=== PATIENT | female | born 1965 | race Caucasian/White ===

== ENCOUNTER 2021-01-15 05:44 | Inpatient (IN) | payer BC ==
[2021-01-14 13:45] LABS: BASOPHILS % (AUTO) 0.5 % (0-1); EOSINOPHILS # (AUTO) 0.1 X10'3 (0-0.9); LYMPHOCYTES # (AUTO) 1.6 X10'3 (1.1-4.8); LYMPHOCYTES % (AUTO) 21.7 % (21-51); MEAN CORPUSCULAR HEMOGLOBIN 34.5 PG (27.0-31.0); MEAN CORPUSCULAR HGB CONC 35.1 g/dL (33.0-36.5); MEAN CORPUSCULAR VOLUME 98.3 FL (78-98); MEAN PLATELET VOLUME 7.4 FL (7.4-10.4); MONOCYTES # (AUTO) 0.5 X10'3 (0-0.9); MONOCYTES % (AUTO) 7.2 % (2-12); NEUTROPHILS # (AUTO) 5.2 X10'3 (1.8-7.7); NEUTROPHILS % (AUTO) 69.6 % (42-75); PRE OP HEMATOCRIT 35.7 % (35.0-45.0); PRE OP HEMOGLOBIN 12.5 g/dL (12.0-16.0); PRE OP PLATELET COUNT 193 X10'3 (140-440); RED BLOOD COUNT 3.63 X10'6 (4.20-5.60)
[2021-01-14 13:54] LABS: PRE OP PROTIME 10.2 SECONDS (9.0-12.0)
[2021-01-14 14:00] LABS: ALBUMIN 3.5 G/DL (3.4-5.0); ALBUMIN/GLOBULIN RATIO 0.8 (1.1-1.5); ALKALINE PHOSPHATASE 131 IU/L (46-116); BLOOD UREA NITROGEN 12 MG/DL (7-18); BUN/CREATININE RATIO 18.2 (6.6-38.0); CALCIUM 8.8 MG/DL (8.5-10.1); CHLORIDE 107 MMOL/L (99-107); CREATININE 0.66 MG/DL (0.40-0.90); PRE OP ALT 25 U/L (30-65); PRE OP ANION GAP 11 (8-16); PRE OP AST 20 U/L (10-37); PRE OP BILIRUB, TOTAL 0.3 MG/DL (0.0-1.0); PRE OP GLUCOSE 85 MG/DL (70-104); PRE OP POTASSIUM 4.1 MMOL/L (3.4-5.1); PRE OP SODIUM 142 MMOL/L (135-145); TOTAL CARBON DIOXIDE 24.5 MMOL/L (24-32); eGFR > 90 ML/MIN
[~2021-01-15] VITALS: Ht 167.6 cm; Wt 67.7 kg
[2021-01-15] VITALS (22 sets, daily range): BP systolic 98–139; BP diastolic 48–78
[~2021-01-15 05:44] MED LIST: CLON-527 PO; FAMO-128 PO; SERT50TA PO; albuterol 2.5 MG/3 ML nebule NEB PRN; cefazolin/dext.iso 2gm/100ml IV ONE; famotidine 20mg tablet PO ONE
[2021-01-15] MEDS ORDERED: ROPIVAcaine 0.5% (5mg/ml) 30ml vial ONE (07:17)
[2021-01-15] MEDS ORDERED: LIDOcaine 1% (10mg/ml) 2ml vial ONE (07:17)
[2021-01-15] MEDS: ringers solution, lacted 1,000 ML IV SCH ×2 (07:24→17:39)
[2021-01-15] MEDS ORDERED: dexamethasone sod phosphate 10mg/ml inj ONE (07:55)
[2021-01-15] MEDS ORDERED: rocuronium 10mg/ml inj IV ONE ×2 (07:55→08:39)
[2021-01-15] MEDS ORDERED: sevoflurane 250ml liquid IH ONE (07:55)
[2021-01-15] MEDS ORDERED: midazolam 1 mg/ML 2ml injection ONE (08:06)
[2021-01-15] MEDS ORDERED: fentaNYL /PF 50mcg/ml 5ml ampule ONE (08:06)
[2021-01-15] MEDS ORDERED: MIDAZolam 1 MG/ML 5ML VIAL ONE (08:13)
[2021-01-15] MEDS ORDERED: LIDOcaine 2% (20mg/ml) 5ml vial ONE (08:39)
[2021-01-15] MEDS ORDERED: propofol inj 20 ML IV ONE (08:39)
[2021-01-15] MEDS ORDERED: BUPIVAcaine/PF 2.5mg/ml (0.25%) 10ml vial ONE (09:08)
[2021-01-15] MEDS ORDERED: ePHEDrine 50MG/ML INJ. ONE (09:34)
[2021-01-15] MEDS ORDERED: albumin (Human) 5% 250ml 250 ML IV ONE ×2 (10:05)
[2021-01-15] MEDS ORDERED: ondansetron/PF 4mg/2ml inj ONE (10:16)
[2021-01-15] MEDS ORDERED: proCHLORperazine 10 MG/2 ml inj IV PRN (10:45)
[2021-01-15] MEDS ORDERED: ringers solution, lacted 1,000 ML IV SCH (10:45)
[2021-01-15] MEDS ORDERED: meperidine/PF 25mg/ml syringe IV PRN ×3 (10:45)
[2021-01-15] MEDS ORDERED: ondansetron/PF 4mg/2ml inj IV PRN ×2 (10:45→12:05)
[2021-01-15] MEDS ORDERED: NALOXONE IV PRN (11:15)
[2021-01-15] MEDS ORDERED: NORMAL SALINE IV PRN (11:15)
[2021-01-15] MEDS ORDERED: fentaNYL/PF 50MCG/1 ML 2ML syringe ONE (11:24)
[2021-01-15] MEDS ORDERED: glycopyrrolate 0.2mg/ml inj ONE (11:55)
[2021-01-15] MEDS ORDERED: neostigmine methylsulfate 1 MG/ML 10ml vial ONE (11:55)
--- NOTE | 2021-01-15 11:57 | NUR ---
Received from OR via , accompanied by Anesthesiologist DR CLEANING and report given by Anesthesiolgist. PT PRESENTS WITH ART LINE 20G LEFT WRIST, CENTRAL LINE QUAD LUMEN RIGHT. CHEST TUBE WITH 220 MLS OUT PUT. VSS. PT CO PAIN . Addendum: 01/15/21 at 1224 by Sharon Doshi RN, RN Amended: Links added.
[2021-01-15] MEDS ORDERED: [UNRECOGNIZED DRUG - OTHER] EPI SCH ×4 (12:00→19:53)
[2021-01-15] MEDS ORDERED: FENTANYL EPI SCH ×4 (12:00→19:53)
[2021-01-15] MEDS ORDERED: BUPIVACAINE EPI SCH ×4 (12:00→19:53)
[2021-01-15] MEDS ORDERED: metoclopramide 5 mg/ml inj IV PRN (12:05)
[2021-01-15] MEDS ORDERED: albuterol 2.5 MG/3 ML nebule NEB PRN (12:05)
[2021-01-15 12:38] LABS: ABG BASE EXCESS -3.6 mmol/L (-2.0-2.0); ABG HCO3 22.5 mmol/L (22.0-26.0); ABG OXYGEN SATURATION 98.7 % (94-97); ABG PCO2 (T) 47.5 mmHg (32.0-45.0); ABG PO2 (T) 176.4 mmHg (75.0-100.0); FLOW 10 L/min; FMetHb 0.3 % (0.0-1.5); FO2Hb 97.4 % (94-97)
[2021-01-15 12:48] LABS: ALBUMIN 3.1 G/DL (3.4-5.0); ANION GAP 11 (8-16); BLOOD UREA NITROGEN 13 MG/DL (7-18); BUN/CREATININE RATIO 20.3 (6.6-38.0); CALCIUM 7.7 MG/DL (8.5-10.1); CHLORIDE 107 MMOL/L (99-107); CREATININE 0.64 MG/DL (0.40-0.90); GLUCOSE 173 MG/DL (70-104); POTASSIUM 4.1 MMOL/L (3.5-5.1); SODIUM 141 MMOL/L (135-145); eGFR > 90 ML/MIN
[2021-01-15] MEDS: clonazePAM 1mg tablet PO SCH ×2 (13:00→22:03)
--- NOTE | 2021-01-15 13:17 | NUR ---
Report called to receiving nurse. Transferred via HOSPITAL BED. 1 BAG Belongings, DENTURES, GLASSES, UNDERWEAR AND MASK TO ROOM 2039. REPORT GIVEN TO ARSH PEARL. VSS. . Addendum: 01/15/21 at 1323 by Sharon Doshi RN, RN Amended: Links added.
--- NOTE | 2021-01-15 13:45 | NUR ---
Received patient from PACU. Report received from Sharon PEARL. Vitals stable. CT draining serosanguinous fluid. Intermittent air leak present. Dressing to right chest and back dry and intact.
[2021-01-15] MEDS: ceFAZolin inj. 1,000 MG in dextrose 5%-water 50ml 50 ML IV SCH ×2 (15:40→23:05)
[2021-01-15] MEDS: albuterol 2.5 MG/3 ML nebule NEB SCH ×3 (16:01→23:03)
--- NOTE | 2021-01-15 18:10 | NUR ---
Problems reprioritized. Patient report given, questions answered & plan of care reviewed with Jennifer PEARL.
--- NOTE | 2021-01-15 18:12 | NUR ---
Problems reprioritized. Patient report given, questions answered & plan of care reviewed with Ortega PEARL.
[2021-01-15] MEDS: gabapentin 300mg capsule PO SCH (19:56)
[2021-01-15] MEDS: famotidine 20mg tablet PO SCH (19:56)
[2021-01-15] MEDS: docusate sod 100mg capsule PO SCH (19:57)
[2021-01-16] VITALS (24 sets, daily range): BP systolic 88–111; BP diastolic 49–69
[2021-01-16] MEDS ORDERED: [UNRECOGNIZED DRUG - OTHER] EPI SCH (01:35)
[2021-01-16] MEDS ORDERED: BUPIVACAINE EPI SCH (01:35)
[2021-01-16] MEDS ORDERED: FENTANYL EPI SCH (01:35)
[2021-01-16] MEDS: FENTANYL-0.9 % NACL/PF 100 ML EPI SCH ×2 (03:24→21:09)
[2021-01-16] MEDS: albuterol 2.5 MG/3 ML nebule NEB SCH ×6 (04:03→23:54)
--- NOTE | 2021-01-16 05:10 | NUR ---
Patient prefer a day bath at this time
[2021-01-16 06:50] LABS: BASOPHILS % (AUTO) 0.1 % (0-1); EOSINOPHILS % (AUTO) 0 % (0-6); HEMATOCRIT 27.6 % (35.0-45.0); HEMOGLOBIN 9.6 g/dl (12.0-16.0); MEAN CORPUSCULAR HEMOGLOBIN 34.5 PG (27.0-31.0); MEAN CORPUSCULAR HGB CONC 34.9 g/dL (33.0-36.5); MEAN CORPUSCULAR VOLUME 98.9 FL (78-98); MEAN PLATELET VOLUME 7.8 FL (7.4-10.4); MONOCYTES # (AUTO) 0.9 X10'3 (0-0.9); MONOCYTES % (AUTO) 7.7 % (2-12); NEUTROPHILS # (AUTO) 10.1 X10'3 (1.8-7.7); NEUTROPHILS % (AUTO) 84.2 % (42-75); PLATELET COUNT 157 X10'3 (140-440); RED BLOOD COUNT 2.79 X10'6 (4.20-5.60); RED CELL DISTRIBUTION WIDTH 16.5 % (11.5-14.5)
[2021-01-16 07:01] LABS: ALANINE AMINOTRANSFERASE 23 U/L (12-78); ALBUMIN/GLOBULIN RATIO 0.9 (1.1-1.5); ALKALINE PHOSPHATASE 81 IU/L (46-116); ANION GAP 11 (8-16); ASPARTATE AMINO TRANSFERASE 29 U/L (10-37); BILIRUBIN,TOTAL 0.5 MG/DL (0.1-1.0); BLOOD UREA NITROGEN 12 MG/DL (7-18); BUN/CREATININE RATIO 19.4 (6.6-38.0); CHLORIDE 104 MMOL/L (99-107); CREATININE 0.62 MG/DL (0.40-0.90); GLUCOSE 122 MG/DL (70-104); MAGNESIUM 1.7 MG/DL (1.5-2.4); POTASSIUM 4.1 MMOL/L (3.5-5.1); SODIUM 141 MMOL/L (135-145); TOTAL CARBON DIOXIDE 26.3 MMOL/L (24-32); TOTAL PROTEIN 6.5 G/DL (6.4-8.2); eGFR > 90 ML/MIN
[2021-01-16] MEDS: docusate sod 100mg capsule PO SCH ×2 (07:46→21:09)
[2021-01-16] MEDS: famotidine 20mg tablet PO SCH ×2 (07:46→21:09)
[2021-01-16] MEDS: gabapentin 300mg capsule PO SCH ×2 (07:46→21:09)
[2021-01-16] MEDS: sertraline 50mg tablet PO SCH (07:47)
[2021-01-16] MEDS: clonazePAM 1mg tablet PO SCH ×3 (07:47→21:08)
[2021-01-16] MEDS ORDERED: ketorolac trometh. 30mg/ml inj. IV ONE (09:50)
[2021-01-16 09:59] LABS: ALBUMIN 2.9 G/DL (3.4-5.0); BLOOD UREA NITROGEN 12 MG/DL (7-18); BUN/CREATININE RATIO 16.2 (6.6-38.0); CALCIUM 8.1 MG/DL (8.5-10.1); CREATININE 0.74 MG/DL (0.40-0.90); GLUCOSE 133 MG/DL (70-104); POTASSIUM 3.9 MMOL/L (3.5-5.1); TOTAL CARBON DIOXIDE 28.4 MMOL/L (24-32); eGFR 81 ML/MIN
[2021-01-16 10:00] LABS: ANION GAP 8 (8-16); CHLORIDE 104 MMOL/L (99-107); SODIUM 140 MMOL/L (135-145)
[2021-01-16] MEDS ORDERED: ketorolac trometh. 30mg/ml inj. IM SCH (14:00)
[2021-01-16] MEDS: ketorolac trometh. 30mg/ml inj. IV SCH ×2 (14:00→21:07)
--- NOTE | 2021-01-16 18:30 | NUR ---
Patient in room ICU 2039. I have received report from MIGUEL PEARL and had the opportunity to ask questions and assume patient care.
[2021-01-16] MEDS ORDERED: acetaminophen 325mg tablet PO PRN (20:55)
--- NOTE | 2021-01-16 21:50 | NUR ---
[facility] AGREEABLE TO TITRATING EPIDURAL DOWN IN HOPES TO DC TMRW. HE IS ALSO AWARE THAT PT SPIKED FEVER OF 38.7C. NEW ORDER FOR PO TYLONEL.
[2021-01-17] VITALS (24 sets, daily range): BP systolic 85–119; BP diastolic 39–67
--- NOTE | 2021-01-17 | NUR ---
New order for maintenance fluids. pt has had decreased urine output the last couple hours and and no urine output this hour. Aden was flushed and is patent. bladder scan reads 0mls and she does not feel any pressure. pt say she has taken in 2 water pitchers as well as the fluids on her meal trays today. vital signs remain stable with soft BPs and HR is the low 100s. [facility] says to call back in a few hours if she does not respond to the fluids.
[2021-01-17] MEDS: normal saline 1000ml 1,000 ML IV SCH ×2 (00:02→14:09)
[2021-01-17] MEDS: ketorolac trometh. 30mg/ml inj. IV SCH ×3 (02:10→14:00)
[2021-01-17] MEDS: albuterol 2.5 MG/3 ML nebule NEB SCH ×5 (04:12→18:59)
[2021-01-17 07:20] LABS: BASOPHILS % (AUTO) 0.2 % (0-1); EOSINOPHILS % (AUTO) 0.3 % (0-6); HEMOGLOBIN 10.8 g/dl (12.0-16.0); LYMPHOCYTES # (AUTO) 1.1 X10'3 (1.1-4.8); MEAN CORPUSCULAR HGB CONC 33.8 g/dL (33.0-36.5); MEAN CORPUSCULAR VOLUME 100.6 FL (78-98); MEAN PLATELET VOLUME 7.9 FL (7.4-10.4); MONOCYTES # (AUTO) 1.2 X10'3 (0-0.9); MONOCYTES % (AUTO) 7.7 % (2-12); NEUTROPHILS % (AUTO) 84.8 % (42-75); PLATELET COUNT 163 X10'3 (140-440); RED BLOOD COUNT 3.18 X10'6 (4.20-5.60); RED CELL DISTRIBUTION WIDTH 16.1 % (11.5-14.5); WHITE BLOOD COUNT 15.3 X10'3 (4.5-11.0)
[2021-01-17 07:21] LABS: ALANINE AMINOTRANSFERASE 24 U/L (12-78); ALBUMIN 3.1 G/DL (3.4-5.0); ALBUMIN/GLOBULIN RATIO 0.8 (1.1-1.5); ALKALINE PHOSPHATASE 93 IU/L (46-116); ANION GAP 11 (8-16); ASPARTATE AMINO TRANSFERASE 35 U/L (10-37); BILIRUBIN,TOTAL 0.8 MG/DL (0.1-1.0); BLOOD UREA NITROGEN 18 MG/DL (7-18); BUN/CREATININE RATIO 18.4 (6.6-38.0); CALCIUM 8.6 MG/DL (8.5-10.1); CHLORIDE 103 MMOL/L (99-107); CREATININE 0.98 MG/DL (0.40-0.90); GLUCOSE 123 MG/DL (70-104); MAGNESIUM 2.1 MG/DL (1.5-2.4); POTASSIUM 4.2 MMOL/L (3.5-5.1); SODIUM 139 MMOL/L (135-145); TOTAL CARBON DIOXIDE 25.3 MMOL/L (24-32); eGFR 58 ML/MIN
[2021-01-17] MEDS: gabapentin 300mg capsule PO SCH (08:00)
[2021-01-17 09:32] LABS: ALBUMIN 2.8 G/DL (3.4-5.0); ANION GAP 11 (8-16); BLOOD UREA NITROGEN 19 MG/DL (7-18); BUN/CREATININE RATIO 19.8 (6.6-38.0); CALCIUM 8.4 MG/DL (8.5-10.1); CHLORIDE 104 MMOL/L (99-107); CREATININE 0.96 MG/DL (0.40-0.90); GLUCOSE 147 MG/DL (70-104); POTASSIUM 3.9 MMOL/L (3.5-5.1); SODIUM 138 MMOL/L (135-145); TOTAL CARBON DIOXIDE 22.7 MMOL/L (24-32); eGFR 60 ML/MIN
[2021-01-17] MEDS: docusate sod 100mg capsule PO SCH ×2 (09:37→20:00)
[2021-01-17] MEDS: clonazePAM 1mg tablet PO SCH ×3 (09:37→21:00)
[2021-01-17] MEDS: sertraline 50mg tablet PO SCH (09:37)
[2021-01-17] MEDS: famotidine 20mg tablet PO SCH ×2 (09:37→22:06)
[2021-01-17] MEDS: ketorolac tromethamine 15mg/ml inj. IV SCH ×2 (14:10→22:06)
[2021-01-17] MEDS: HYDROcodone/acetaminophen 10/325mg tab PO PRN (17:06)
[2021-01-17] MEDS: FENTANYL-0.9 % NACL/PF 100 ML EPI SCH (17:45)
[2021-01-18] VITALS (24 sets, daily range): BP systolic 85–133; BP diastolic 48–73
[2021-01-18] MEDS: albuterol 2.5 MG/3 ML nebule NEB SCH ×7 (00:02→23:00)
[2021-01-18] MEDS: ketorolac tromethamine 15mg/ml inj. IV SCH ×2 (02:41→07:16)
[2021-01-18 05:06] LABS: BASOPHILS % (AUTO) 0.2 % (0-1); EOSINOPHILS # (AUTO) 0.2 X10'3 (0-0.9); EOSINOPHILS % (AUTO) 1.6 % (0-6); HEMATOCRIT 22.8 % (35.0-45.0); HEMOGLOBIN 7.8 g/dl (12.0-16.0); LYMPHOCYTES # (AUTO) 0.8 X10'3 (1.1-4.8); LYMPHOCYTES % (AUTO) 8.4 % (21-51); MEAN CORPUSCULAR HEMOGLOBIN 34.5 PG (27.0-31.0); MEAN CORPUSCULAR HGB CONC 34.2 g/dL (33.0-36.5); MEAN CORPUSCULAR VOLUME 100.7 FL (78-98); MEAN PLATELET VOLUME 7.7 FL (7.4-10.4); MONOCYTES # (AUTO) 0.6 X10'3 (0-0.9); MONOCYTES % (AUTO) 6.8 % (2-12); NEUTROPHILS # (AUTO) 7.9 X10'3 (1.8-7.7); PLATELET COUNT 125 X10'3 (140-440); RED BLOOD COUNT 2.26 X10'6 (4.20-5.60); RED CELL DISTRIBUTION WIDTH 14.7 % (11.5-14.5); WHITE BLOOD COUNT 9.5 X10'3 (4.5-11.0)
[2021-01-18 05:15] LABS: ALANINE AMINOTRANSFERASE 19 U/L (12-78); ALBUMIN 2.2 G/DL (3.4-5.0); ALBUMIN/GLOBULIN RATIO 0.6 (1.1-1.5); ALKALINE PHOSPHATASE 80 IU/L (46-116); ANION GAP 7 (8-16); ASPARTATE AMINO TRANSFERASE 28 U/L (10-37); BILIRUBIN,TOTAL 0.4 MG/DL (0.1-1.0); BLOOD UREA NITROGEN 15 MG/DL (7-18); BUN/CREATININE RATIO 23.1 (6.6-38.0); CALCIUM 8.1 MG/DL (8.5-10.1); CHLORIDE 107 MMOL/L (99-107); CREATININE 0.65 MG/DL (0.40-0.90); GLUCOSE 114 MG/DL (70-104); POTASSIUM 3.4 MMOL/L (3.5-5.1); SODIUM 141 MMOL/L (135-145); TOTAL CARBON DIOXIDE 26.9 MMOL/L (24-32); TOTAL PROTEIN 5.7 G/DL (6.4-8.2); eGFR > 90 ML/MIN
[2021-01-18] MEDS: HYDROcodone/acetaminophen 10/325mg tab PO PRN (07:15)
[2021-01-18] MEDS: famotidine 20mg tablet PO SCH ×2 (07:16→20:49)
[2021-01-18] MEDS: docusate sod 100mg capsule PO SCH ×2 (07:16→20:49)
[2021-01-18] MEDS: sertraline 50mg tablet PO SCH (07:16)
[2021-01-18] MEDS: clonazePAM 1mg tablet PO SCH ×3 (07:16→20:49)
[2021-01-18] MEDS ORDERED: furosemide 40mg/4ml inj IV ONE (08:50)
[2021-01-18] MEDS ORDERED: furosemide 20 MG/2 ML vial IV ONE (08:55)
[2021-01-18 09:48] LABS: ISTAT CL 105 mmol/L (99-107)
[2021-01-18 09:49] LABS: ISTAT ANION GAP 9 (8-12); ISTAT BUN 11 mg/dL (7-18); ISTAT CREATININE 0.5 mg/dL (0.6-1.1); ISTAT GLUCOSE 171 mg/dL (70-105); ISTAT HGB 8.2 g/dl (12.0-16.0); ISTAT Hct 24 %PCV (35-48); ISTAT IONIZED CALCIUM 1.14 mmol/L (1.03-1.32); ISTAT TOTAL CO2 24 mmol/L (24-32); ISTAT eGFR > 90 ML/MIN
[2021-01-18 09:50] LABS: ISTAT NA 138 mmol/L (135-145)
[2021-01-18] MEDS: metoprolol tartrate 12.5mg (1/2 tablet) PO SCH ×2 (13:05→20:49)
[2021-01-18] MEDS ORDERED: magnesium Cl slow-release 64mg tablet PO PRN (14:55)
[2021-01-18] MEDS ORDERED: magnesium 2GM in 50ml NS 50 ML IV PRN (14:55)
[2021-01-18] MEDS ORDERED: potassium Cl 40MEQ/1/2NS 520ml 520 ML IV PRN (14:55)
[2021-01-18] MEDS ORDERED: magnesium 4gm in 100ml NS 100 ML IV PRN (14:55)
[2021-01-18] MEDS ORDERED: potassium Cl 20 mEq SR tablet PO PRN ×2 (14:55)
[2021-01-18] MEDS: normal saline 1000ml 1,000 ML IV SCH ×2 (17:22→19:36)
[2021-01-18] MEDS: K and/or MAG REPLACEMENT MC SCH (19:36)
[2021-01-18] MEDS ORDERED: metoprolol tartrate 12.5mg (1/2 tablet) PO SCH (20:00)
[2021-01-19] VITALS (19 sets, daily range): BP systolic 103–152; BP diastolic 60–81
[2021-01-19] MEDS: HYDROcodone/acetaminophen 10/325mg tab PO PRN ×3 (02:05→16:13)
[2021-01-19 02:42] LABS: BASOPHILS % (AUTO) 0.2 % (0-1); EOSINOPHILS # (AUTO) 0.3 X10'3 (0-0.9); EOSINOPHILS % (AUTO) 2.5 % (0-6); HEMATOCRIT 22.8 % (35.0-45.0); LYMPHOCYTES # (AUTO) 1.2 X10'3 (1.1-4.8); LYMPHOCYTES % (AUTO) 11.8 % (21-51); MEAN CORPUSCULAR HEMOGLOBIN 34.6 PG (27.0-31.0); MEAN CORPUSCULAR HGB CONC 34.9 g/dL (33.0-36.5); MEAN CORPUSCULAR VOLUME 99.1 FL (78-98); MEAN PLATELET VOLUME 7.9 FL (7.4-10.4); MONOCYTES # (AUTO) 0.8 X10'3 (0-0.9); MONOCYTES % (AUTO) 7.9 % (2-12); NEUTROPHILS # (AUTO) 7.9 X10'3 (1.8-7.7); NEUTROPHILS % (AUTO) 77.6 % (42-75); PLATELET COUNT 159 X10'3 (140-440); RED CELL DISTRIBUTION WIDTH 14.5 % (11.5-14.5); WHITE BLOOD COUNT 10.2 X10'3 (4.5-11.0)
[2021-01-19 02:58] LABS: ALANINE AMINOTRANSFERASE 23 U/L (12-78); ALBUMIN 2.3 G/DL (3.4-5.0); ALBUMIN/GLOBULIN RATIO 0.6 (1.1-1.5); ALKALINE PHOSPHATASE 92 IU/L (46-116); ANION GAP 9 (8-16); ASPARTATE AMINO TRANSFERASE 32 U/L (10-37); BILIRUBIN,TOTAL 0.5 MG/DL (0.1-1.0); BLOOD UREA NITROGEN 12 MG/DL (7-18); BUN/CREATININE RATIO 19.4 (6.6-38.0); CHLORIDE 106 MMOL/L (99-107); CREATININE 0.62 MG/DL (0.40-0.90); GLUCOSE 110 MG/DL (70-104); MAGNESIUM 1.9 MG/DL (1.5-2.4); POTASSIUM 3.8 MMOL/L (3.5-5.1); SODIUM 141 MMOL/L (135-145); TOTAL CARBON DIOXIDE 25.8 MMOL/L (24-32); TOTAL PROTEIN 6.2 G/DL (6.4-8.2); eGFR > 90 ML/MIN
[2021-01-19] MEDS: albuterol 2.5 MG/3 ML nebule NEB SCH ×6 (03:46→23:01)
[2021-01-19] MEDS: normal saline 1000ml 1,000 ML IV SCH (05:17)
[2021-01-19] MEDS: sertraline 50mg tablet PO SCH (07:51)
[2021-01-19] MEDS: famotidine 20mg tablet PO SCH ×2 (07:51→19:15)
[2021-01-19] MEDS: metoprolol tartrate 12.5mg (1/2 tablet) PO SCH ×2 (07:51→19:34)
[2021-01-19] MEDS: docusate sod 100mg capsule PO SCH ×2 (07:51→19:14)
[2021-01-19] MEDS: clonazePAM 1mg tablet PO SCH ×3 (07:52→20:58)
[2021-01-19] MEDS: K and/or MAG REPLACEMENT MC SCH (08:00)
[2021-01-19] MEDS ORDERED: furosemide 40mg/4ml inj IV ONE (08:35)
--- NOTE | 2021-01-19 10:56 | NUR ---
Nutrition consult: Pt s/p R thoracotomy, R lung lobectomy, and resection of pancoast tumor. Provided pt w/ written and verbal high protein diet education w/ RD contact info. Noted pt w/ ~50% avg PO intake on Regular diet. Recommend Ensure High Protein BID to help meet increased protein needs. Addendum: 01/19/21 at [address] Amended: Links added.
--- NOTE | 2021-01-19 14:26 | NUR ---
Received report from DAE Aly. Awaiting patient arrival to room 3019.
--- NOTE | 2021-01-19 15:48 | NUR ---
Patient arrived to room 3019 via wheelchair and ambulated from wheelchair into bed with no problem. Nasal cannula at 4.5L and CT to water seal with ambulation. Vital signs are temp 98.7, BP 152/71, RR 23, HR 110, 91% on 4.5L NC, pain 8/10 on right side. Bed locked and lowered, nonskid socks on, call light in reach and in no acute distress.
--- NOTE | 2021-01-19 16:00 | NUR ---
Patient in room PCU 319. I have received report from Amy and had the opportunity to ask questions and assume patient care. Patient VS are temp 98.7, BP 152/71, HR 110, RR 23, and 91% on 4.5L NC. Call light in reach and will continue to monitor.
--- NOTE | 2021-01-19 16:01 | NUR ---
Called report for pt to receiving nurse, Pt transported from RM 2039 to RM 3019 via RN @1553, transported with Tele and O2, bedside handoff with receiving nurse upon arrival to unit.
[2021-01-19] MEDS: lactose-reduced food (Ensure High Protein) 237ml bottle PO SCH (17:30)
--- NOTE | 2021-01-19 18:03 | NUR ---
Student Medication Administration: For this medication-pass time frame, all medication were reviewed, dispensed, administered and documented per hospital policy by martha Torres nurse.
--- NOTE | 2021-01-19 18:03 | NUR ---
Student documentation: I have reviewed and agree with all interventions, assessments performed and documented by Melissa student nurse.
--- NOTE | 2021-01-19 18:13 | NUR ---
Problems reprioritized. Patient report given, questions answered & plan of care reviewed with DAE Hurst. Patient stable at transfer of care.
[2021-01-19] MEDS: potassium Cl 20 mEq SR tablet PO SCH (19:14)
[2021-01-19] MEDS: magnesium Cl slow-release 64mg tablet PO SCH (19:14)
[2021-01-20 02:00] VITALS: BP 133/68
[2021-01-20] MEDS: albuterol 2.5 MG/3 ML nebule NEB SCH ×6 (03:04→23:06)
[2021-01-20] MEDS: HYDROcodone/acetaminophen 10/325mg tab PO PRN ×3 (04:06→17:48)
[2021-01-20 06:00] VITALS: BP 136/85
--- NOTE | 2021-01-20 06:26 | NUR ---
Problems reprioritized. Patient report given, questions answered & plan of care reviewed with DAE March.
--- NOTE | 2021-01-20 06:28 | NUR ---
Patient in room PCU 3019. I have received report from Inez PEARL and had the opportunity to ask questions and assume patient care.
[2021-01-20] MEDS: lactose-reduced food (Ensure High Protein) 237ml bottle PO SCH ×2 (07:30→17:56)
[2021-01-20] MEDS: K and/or MAG REPLACEMENT MC SCH (08:00)
[2021-01-20] MEDS: clonazePAM 1mg tablet PO SCH ×3 (08:04→20:55)
[2021-01-20] MEDS: potassium Cl 20 mEq SR tablet PO SCH ×2 (08:05→19:41)
[2021-01-20] MEDS: docusate sod 100mg capsule PO SCH ×2 (08:05→19:42)
[2021-01-20] MEDS: magnesium Cl slow-release 64mg tablet PO SCH ×2 (08:05→19:41)
[2021-01-20] MEDS: metoprolol tartrate 12.5mg (1/2 tablet) PO SCH ×2 (08:06→19:41)
[2021-01-20] MEDS: famotidine 20mg tablet PO SCH ×2 (08:06→19:42)
[2021-01-20] MEDS: sertraline 50mg tablet PO SCH (08:06)
[2021-01-20 08:24] LABS: ALBUMIN 2.2 G/DL (3.4-5.0); ANION GAP 13 (8-16); BLOOD UREA NITROGEN 12 MG/DL (7-18); BUN/CREATININE RATIO 18.8 (6.6-38.0); CALCIUM 8.4 MG/DL (8.5-10.1); CHLORIDE 103 MMOL/L (99-107); CREATININE 0.64 MG/DL (0.40-0.90); GLUCOSE 105 MG/DL (70-104); POTASSIUM 3.9 MMOL/L (3.5-5.1); SODIUM 143 MMOL/L (135-145); TOTAL CARBON DIOXIDE 27.3 MMOL/L (24-32); eGFR > 90 ML/MIN
[2021-01-20 08:25] LABS: BASOPHILS % (AUTO) 0.2 % (0-1); EOSINOPHILS # (AUTO) 0.1 X10'3 (0-0.9); HEMOGLOBIN 8.4 g/dl (12.0-16.0); LYMPHOCYTES # (AUTO) 0.7 X10'3 (1.1-4.8); LYMPHOCYTES % (AUTO) 6.2 % (21-51); MEAN CORPUSCULAR HEMOGLOBIN 34.6 PG (27.0-31.0); MEAN CORPUSCULAR HGB CONC 34.8 g/dL (33.0-36.5); MEAN CORPUSCULAR VOLUME 99.2 FL (78-98); MEAN PLATELET VOLUME 8.1 FL (7.4-10.4); MONOCYTES # (AUTO) 0.9 X10'3 (0-0.9); MONOCYTES % (AUTO) 8.1 % (2-12); NEUTROPHILS % (AUTO) 84.5 % (42-75); PLATELET COUNT 193 X10'3 (140-440); RED BLOOD COUNT 2.42 X10'6 (4.20-5.60); RED CELL DISTRIBUTION WIDTH 14.4 % (11.5-14.5); WHITE BLOOD COUNT 10.7 X10'3 (4.5-11.0)
[2021-01-20] MEDS ORDERED: magnesium citrate 296ml oral solution PO ONE (09:10)
[2021-01-20] MEDS ORDERED: furosemide 20MG tablet PO SCH (09:35)
[2021-01-20] MEDS: furosemide 20 MG/2 ML vial IV SCH (10:40)
[2021-01-20 11:00] VITALS: BP 116/75
--- NOTE | 2021-01-20 11:29 | NUR ---
Initial: Pt s/p R thoracotomy, R lung lobectomy, and resection of Pancoast tumor. Pt had ~50% intake on Regular diet on admission though is down to avg 30% x 11 recent meals plus 75% of first Ensure HP. LBM 01/14 which may be affecting PO intake, Mag Citrate ordered today per EMR. Will continue to monitor PO intake and make recommendations as appropriate. Recs: 1. Continue Regular diet as tolerated, encourage PO 2. Ensure High Protein BID, may change to Enlive if PO declines 3. Bowel care per rx 4. Weekly wts Addendum: 01/20/21 at [address] Amended: Links added.
[2021-01-20 15:00] VITALS: BP 115/61
--- NOTE | 2021-01-20 16:18 | NUR ---
requeat for breathing treatment room 3017F, Yamila Montemayor, patient requesting breathing treatment
[2021-01-20 18:00] VITALS: BP 110/67
--- NOTE | 2021-01-20 18:44 | NUR ---
Problems reprioritized. Patient report given, questions answered & plan of care reviewed with Inez PEARL.
[2021-01-20 22:00] VITALS: BP 102/62
[2021-01-21] MEDS: HYDROcodone/acetaminophen 10/325mg tab PO PRN ×3 (01:05→18:51)
[2021-01-21] MEDS: albuterol 2.5 MG/3 ML nebule NEB SCH ×5 (03:01→20:52)
[2021-01-21 06:00] VITALS: BP 97/61
--- NOTE | 2021-01-21 06:40 | NUR ---
Problems reprioritized. Patient report given, questions answered & plan of care reviewed with DAE Pettit.
[2021-01-21 06:52] LABS: BASOPHILS % (AUTO) 0.5 % (0-1); EOSINOPHILS # (AUTO) 0.2 X10'3 (0-0.9); EOSINOPHILS % (AUTO) 2.5 % (0-6); HEMATOCRIT 26.3 % (35.0-45.0); HEMOGLOBIN 8.9 g/dl (12.0-16.0); LYMPHOCYTES % (AUTO) 10.7 % (21-51); MEAN CORPUSCULAR HGB CONC 33.7 g/dL (33.0-36.5); MEAN PLATELET VOLUME 7.4 FL (7.4-10.4); MONOCYTES % (AUTO) 10.3 % (2-12); NEUTROPHILS # (AUTO) 7.3 X10'3 (1.8-7.7); PLATELET COUNT 208 X10'3 (140-440); RED CELL DISTRIBUTION WIDTH 14.4 % (11.5-14.5); WHITE BLOOD COUNT 9.6 X10'3 (4.5-11.0)
[2021-01-21 07:05] LABS: ALBUMIN 2.2 G/DL (3.4-5.0); ANION GAP 8 (8-16); BLOOD UREA NITROGEN 15 MG/DL (7-18); BUN/CREATININE RATIO 23.1 (6.6-38.0); CALCIUM 8.6 MG/DL (8.5-10.1); CHLORIDE 103 MMOL/L (99-107); CREATININE 0.65 MG/DL (0.40-0.90); GLUCOSE 98 MG/DL (70-104); POTASSIUM 3.8 MMOL/L (3.5-5.1); SODIUM 140 MMOL/L (135-145); TOTAL CARBON DIOXIDE 29.4 MMOL/L (24-32); eGFR > 90 ML/MIN
[2021-01-21] MEDS: lactose-reduced food (Ensure High Protein) 237ml bottle PO SCH ×3 (07:30→18:52)
[2021-01-21] MEDS: K and/or MAG REPLACEMENT MC SCH (08:00)
[2021-01-21] MEDS: furosemide 20 MG/2 ML vial IV SCH (08:00)
[2021-01-21] MEDS: sertraline 50mg tablet PO SCH (08:38)
[2021-01-21] MEDS: magnesium Cl slow-release 64mg tablet PO SCH ×2 (08:38→21:13)
[2021-01-21] MEDS: famotidine 20mg tablet PO SCH ×2 (08:38→21:13)
[2021-01-21] MEDS: potassium Cl 20 mEq SR tablet PO SCH ×2 (08:38→21:18)
[2021-01-21] MEDS: docusate sod 100mg capsule PO SCH ×2 (08:38→21:18)
[2021-01-21] MEDS: metoprolol tartrate 12.5mg (1/2 tablet) PO SCH ×2 (08:39→21:22)
[2021-01-21] MEDS: clonazePAM 1mg tablet PO SCH ×3 (08:39→21:18)
[2021-01-21 08:40] VITALS: BP 106/69
[2021-01-21 11:00] VITALS: BP 93/60
[2021-01-21] MEDS: ketorolac tromethamine 15mg/ml inj. IV SCH ×2 (13:36→21:13)
[2021-01-21 15:00] VITALS: BP 104/57
[2021-01-21 18:00] VITALS: BP 126/75
--- NOTE | 2021-01-21 18:41 | NUR ---
Problems reprioritized. Patient report given, questions answered & plan of care reviewed with Rayne PEARL.
[2021-01-21] MEDS ORDERED: polyethylene glycol 3350 17gm powd pack PO SCH ×2 (21:00→21:39)
[2021-01-21 22:00] VITALS: BP 127/68
[2021-01-22] MEDS: albuterol 2.5 MG/3 ML nebule NEB SCH ×4 (00:18→11:26)
[2021-01-22] MEDS: ketorolac tromethamine 15mg/ml inj. IV SCH ×2 (02:09→08:00)
[2021-01-22] MEDS: HYDROcodone/acetaminophen 10/325mg tab PO PRN ×2 (05:48→10:58)
[2021-01-22 06:00] VITALS: BP 117/66
[2021-01-22 07:33] LABS: BASOPHILS # (AUTO) 0.1 X10'3 (0-0.2); BASOPHILS % (AUTO) 0.5 % (0-1); EOSINOPHILS # (AUTO) 0.2 X10'3 (0-0.9); EOSINOPHILS % (AUTO) 2.4 % (0-6); LYMPHOCYTES # (AUTO) 0.9 X10'3 (1.1-4.8); LYMPHOCYTES % (AUTO) 8.9 % (21-51); MEAN CORPUSCULAR HEMOGLOBIN 34.3 PG (27.0-31.0); MEAN CORPUSCULAR HGB CONC 34.5 g/dL (33.0-36.5); MEAN CORPUSCULAR VOLUME 99.7 FL (78-98); MEAN PLATELET VOLUME 7.2 FL (7.4-10.4); MONOCYTES # (AUTO) 0.9 X10'3 (0-0.9); MONOCYTES % (AUTO) 8.4 % (2-12); NEUTROPHILS # (AUTO) 8.3 X10'3 (1.8-7.7); NEUTROPHILS % (AUTO) 79.8 % (42-75); PLATELET COUNT 223 X10'3 (140-440); RED BLOOD COUNT 2.61 X10'6 (4.20-5.60); RED CELL DISTRIBUTION WIDTH 14.4 % (11.5-14.5); WHITE BLOOD COUNT 10.4 X10'3 (4.5-11.0)
[2021-01-22 07:45] LABS: ALBUMIN 2.3 G/DL (3.4-5.0); ANION GAP 12 (8-16); BLOOD UREA NITROGEN 22 MG/DL (7-18); BUN/CREATININE RATIO 32.4 (6.6-38.0); CALCIUM 9.3 MG/DL (8.5-10.1); CHLORIDE 104 MMOL/L (99-107); CREATININE 0.68 MG/DL (0.40-0.90); GLUCOSE 108 MG/DL (70-104); POTASSIUM 4.2 MMOL/L (3.5-5.1); SODIUM 142 MMOL/L (135-145); TOTAL CARBON DIOXIDE 26.4 MMOL/L (24-32); eGFR 89 ML/MIN
[2021-01-22] MEDS: potassium Cl 20 mEq SR tablet PO SCH (08:00)
[2021-01-22] MEDS: docusate sod 100mg capsule PO SCH (08:00)
[2021-01-22] MEDS ORDERED: DOCU100C40 PO (08:23)
[2021-01-22] MEDS ORDERED: HYDR-3972 PO (08:23)
[2021-01-22] MEDS ORDERED: LOP12.5T PO (08:23)
[2021-01-22 08:45] VITALS: BP_SYST 117
[2021-01-22] MEDS: sertraline 50mg tablet PO SCH (08:45)
[2021-01-22] MEDS: metoprolol tartrate 12.5mg (1/2 tablet) PO SCH (08:45)
[2021-01-22] MEDS: magnesium Cl slow-release 64mg tablet PO SCH (08:45)
[2021-01-22] MEDS: famotidine 20mg tablet PO SCH (08:45)
[2021-01-22] MEDS: clonazePAM 1mg tablet PO SCH (08:45)
--- NOTE | 2021-01-22 09:41 | NUR ---
O2 Sat at rest on room air:_92_% If below 89%: Recovery O2 Sat at rest on ___LPM:___%:___% via (mask/nasal cannula, etc..) No further documentation is necessary. If O2 Sat did not drop below 89% on room air,ambulate patient on room air. O2 Sat while ambulating on room air:_86_% Recovery O2 Sat while ambulating on _3_LPM:_93% No further documentation is necessary. If patient does not drop below 89% while ambulating, he/she does not qualify for home O2.
--- NOTE | 2021-01-22 13:32 | NUR ---
Patient stable for discharge. Refused 1100 vitals. Patient is anxious to go home but had to wait for [facility] to deliver the oxygen. Dressing on right flank changed as per order and education reinforced for wound care. Discharge packet reviewed with patient and family. Patient and family verbalized understanding. PIV removed with catheter intact. Telemetry removed. Patient transferred off unit via wheelchair with all belongings and oxygen to family's personal vehicle.
== END 2021-01-22 13:22 | disposition home or self-care (01) | DRG 164 ==
LOC: PAS IN 05:44 → ICU 2S 12:03 → PCU 3S 01-19 15:48
PROVIDERS: ADMIT Thoracic Surgery (Cardiothoracic Vascular Surgery); ATTEND Thoracic Surgery (Cardiothoracic Vascular Surgery)
PROC: 0BBC0ZZ Excision of Right Upper Lung Lobe, Open Approach (ICD-10-PCS; principal; 2021-01-19)
PROC: 0WB80ZZ Excision of Chest Wall, Open Approach (ICD-10-PCS; 2021-01-19)
PROC: 07B70ZZ Excision of Thorax Lymphatic, Open Approach (ICD-10-PCS; 2021-01-19)
PROC: 0WU80JZ Supplement Chest Wall with Synthetic Substitute, Open Approach (ICD-10-PCS; 2021-01-19)
DX: C34.11 Malignant neoplasm of upper lobe, right bronchus or lung (principal); D62 Acute posthemorrhagic anemia; J93.82 Other air leak; K21.9 Gastro-esophageal reflux disease without esophagitis; Z20.822 Contact with and (suspected) exposure to COVID-19; M25.511 Pain in right shoulder; R20.0 Anesthesia of skin; F32.A Depression, unspecified; J44.9 Chronic obstructive pulmonary disease, unspecified; M48.42XA Fatigue fracture of vertebra, cervical region, initial encounter for fracture; Z87.891 Personal history of nicotine dependence; Z92.21 Personal history of antineoplastic chemotherapy; Z92.3 Personal history of irradiation; Z79.899 Other long term (current) drug therapy
CPT/HCPCS: Z7506; Z7508; 36415; 36600; 71045; 71046; 80047; 80048; 80053; 82803; 82948; 83735; 85018; 85025; 85610; 85730; 86885; 86900; 86901; 86920; 87081; 87635; 93005; 94010; 94640; 94668; 94727; 94729; 94760; 97116; 97161; 97530; 97535; A4215; A4618; A6258; A6449; A7000; A7048; C1758; C1781; G0378; J0690; J1100; J1644; J1885; J1940; J2001; J2250; J2405; J2704; J2710; J2795; J3010; J3480; J3490; J7030; J7060; J7120; P9045

== ENCOUNTER 2021-02-08 08:56 | Outpatient (CLI) | payer BC ==
[~2021-02-08 08:56] MED LIST changes: +DOCU100C40 PO; +HYDR-3972 PO; +LOP12.5T PO; -albuterol 2.5 MG/3 ML nebule NEB PRN; -cefazolin/dext.iso 2gm/100ml IV ONE; -famotidine 20mg tablet PO ONE
[2021-02-11] MEDS ORDERED: HYDR-3965 PO (08:25)
== END 2021-02-08 23:59 | disposition home or self-care (01) ==
LOC: LAB 08:56
PROVIDERS: ATTEND Thoracic Surgery (Cardiothoracic Vascular Surgery)
DX: C34.11 Malignant neoplasm of upper lobe, right bronchus or lung (principal)
CPT/HCPCS: 71046